=== PATIENT | male | born 1965 | race Caucasian/White ===

== ENCOUNTER → 2023-01-08 13:26 | Outpatient (BNVA) | payer OTHER, SELFPAY | PROVIDERS: PCP Internal Medicine; Visit Provider Physician Assistant ==

== ENCOUNTER 2023-01-16 10:08 | Outpatient (REF) | payer OTHER, SELFPAY ==
--- NOTE | ~2023-01-16 | MR_ITS ---
EXAMINATION: MR LUMBAR SPINE WITHOUT AND WITH CONTRAST CLINICAL INFORMATION: Other intervertebral disc displacement, lumbar region. COMPARISON: Lumbar spine MRI 08/17/2020. TECHNIQUE: MRI of the lumbar spine was obtained using routine sequences without and with intravenous contrast. A total of 10 mL Gadavist was intravenously administered. FINDINGS: The lumbar vertebral bodies maintain normal heights and alignment. No significant disc height loss is seen. There is no bone marrow edema. The distal spinal cord appears normal. The conus medullaris terminates normally at the L1 level. The visualized paraspinal muscles and intra-abdominal and pelvic contents are within normal limits. SPINAL LEVELS: L1-L2: No posterior disc abnormality. No spinal canal or neural foraminal stenosis. L2-L3: Minimal disc bulging with mild facet arthropathy. No spinal canal or neural foraminal stenosis. L3-L4: Disc bulging with shallow central protrusion and moderate facet arthropathy. Mild narrowing the subarticular zones. Mild bilateral neural foraminal stenosis. Mild spinal canal stenosis. L4-L5: Disc bulging with severe facet arthropathy. Bilateral subarticular stenosis with narrowing of both subarticular zones. Mild to moderate spinal canal stenosis. Moderate bilateral neural foraminal stenosis which appears progressed. L5-S1: Right subarticular extrusion with inferior migration resulting in significant compression of the traversing right S1 nerve root. There is peripheral enhancement of the extruded disc material suggesting recurrence. Severe right and moderate left neural foraminal stenosis with compression of the exiting right more than left L5 nerve roots. MR/MR lumbar spine wo/w con IMPRESSION: 1. At L5-S1 there is recurrent right subarticular extrusion with inferior migration resulting in significant compression of the traversing right S1 nerve root. Severe right and moderate left neural foraminal stenosis with compression of the exiting right more than left L5 nerve roots. 2. At L4-L5 there is mild to moderate spinal canal stenosis and progressive moderate bilateral neural foraminal stenosis.
== END 2023-01-16 10:09 | disposition home or self-care (01) ==
LOC: HO.MRI 10:08
PROVIDERS: PCP Internal Medicine; Visit Provider Physician Assistant
DX: M51.26 Other intervertebral disc displacement, lumbar region (principal)
CPT/HCPCS: 72158; A9585

== ENCOUNTER → 2023-03-19 13:36 | Outpatient (BNV) | payer OTHER, SELFPAY | PROVIDERS: Admitting Provider Neurological Surgery; PCP Internal Medicine; Visit Provider Internal Medicine Cardiovascular Disease | DX: Z01.818 Encounter for other preprocedural examination (principal) | CPT/HCPCS: 93010 ==

== ENCOUNTER 2023-05-27 08:50 | Inpatient (IN) | payer OTHER, SELFPAY ==
--- NOTE | 2023-03-19 | ECG_ITS ---
Test Reason : PREOP Blood Pressure : / mmHG Vent. Rate : 069 BPM Atrial Rate : 069 BPM P-R Int : 144 ms QRS Dur : 096 ms QT Int : 400 ms P-R-T Axes : 005 -04 -13 degrees QTc Int : 428 ms Normal sinus rhythm Moderate voltage criteria for LVH, may be normal variant ( R in aVL , Magnus product ) Inferior infarct , age undetermined Abnormal ECG No previous ECGs available Referred By: Enedina Mondragon Electronically Signed By:BRUNO DOLAN MD
[2023-03-19 13:05] VITALS: BP 147/93; PULSE 68; RESP 16; O2SAT 98; BMI 34.3
--- NOTE | 2023-03-19 13:15 | P.CONAN_ITS ---
HPI - Anesthesia Eval Consult details Narrative: 57yo M for L5-S1 Transkambin Lumbar Interbody Fusion rescheduled to 05/27/23 Hx of WPW with open repair ~35years ago No recent illness No CP/SOB with minimal activity d/t back pain Diet controlled DM. A1C ~6% [facility] Active Problems Active Problems: All Active Problems (Updated 03/19/23 @ 13:01 by Devika Livingston RN) Lumbar disc herniation (Acute) Past Medical History Medical History (Updated 03/19/23 @ 13:01 by Devika Livingston RN) Diabetes Difficulty urinating Elevated cholesterol GERD (gastroesophageal reflux disease) History of COVID-19 HTN (hypertension) Renal calculi Sciatica WPW (Hgpkc-Cjulvraco-Mscfi syndrome) Family History Family history of problems with anesthesia: No Surgical History Surgical History (Updated 03/19/23 @ 12:59 by Devika Livingston RN) H/O colonoscopy History of back surgery History of esophagogastroduodenoscopy (EGD) Hx of cholecystectomy Hx of fusion of cervical spine Hx of hernia repair Hx of shoulder surgery Hx of umbilical hernia repair History of Problems with Anesthesia: Yes (PONV) Social History Social History Household Members Other:: brothers Are you a primary pediatric acute care unit nurse to a significant other at home: No Do you presently have visiting nurse or other home services: No Patient Tobacco Use Status: Never used Tobacco Meds Allergies Allergy/AdvReac Type Severity Reaction Status Date / Time gabapentin Allergy Severe Diarrhea Verified 03/19/23 13:05 lisinopril Allergy Intermediate lip Verified 03/18/23 13:26 swelling Home Medications Medication Instructions Recorded Confirmed Last Taken Type amlodipine 5 mg tablet 5 mg PO QAM 03/18/23 03/19/23 Unknown History atorvastatin 40 mg tablet 40 mg PO BEDTIME 03/18/23 03/18/23 Unknown History metoprolol succinate 25 mg 25 mg PO BEDTIME 03/18/23 03/19/23 Unknown History tablet,extended release 24 hr omeprazole 40 mg capsule,delayed 40 mg PO QAM 03/18/23 03/19/23 Unknown History release triamterene 37.5 1 tab PO QAM 03/18/23 03/19/23 Unknown History mg-hydrochlorothiazide 25 mg tablet ibuprofen 200 mg tablet 600 - 800 mg PO BID 03/19/23 03/19/23 Unknown History Exam Exam Date and Time: March 19, 2023 1315 Height,Weight and Vital Signs: Height 5 ft 7 in Weight 99.337 kg Last Vital Signs Pulse 68 03/19/23 13:05 Resp 16 03/19/23 13:05 BP 147/93 H 03/19/23 13:05 Pulse Ox 98 03/19/23 13:05 O2 Del Method Room Air 03/19/23 13:05 Pertinent Lab Results Pertinent Lab Results: Lab Results 03/19/23 03/19/23 Range/Units 13:35 13:35 WBC 7.3 (4.8-10.8) X10*3/uL RBC 5.18 (4.60-5.80) X10*6/uL Hgb 15.7 (14.0-18.0) g/dl Hct 45.3 (42.0-52.0) % MCV 87.5 (80.0-98.0) fL MCH 30.3 (27.0-33.0) pg MCHC 34.7 (31.0-36.0) g/dl RDW 12.8 (11.0-16.0) % Plt Count 224 (160-400) X10*3/uL MPV 10.4 (9.4-12.4) fL Absolute Nucleated RBC 0.000 (0.0-0.012) X10*3/uL Nucleated RBC % (auto) 0.0 (0.0-0.2) /100WBC Sodium 140 (135-145) mmol/L Potassium 3.9 (3.3-5.1) mmol/L Chloride 103 (96-108) mmol/L Carbon Dioxide 27 (22-29) mmol/L Anion Gap 14 (12-20) BUN 19 H (9-16) mg/dL Creatinine 0.91 (0.5-1.4) mg/dL Estim Creat Clear Calc 101.7 Estimated GFR > 60 Random Glucose 128 H (60-115) mg/dL Calcium 9.7 (8.4-10.2) mg/dL Narrative Narrative: EKG 02/2023 Vent. Rate : 069 BPM ? ? Atrial Rate : 069 BPM ?? P-R Int : 144 ms? QRS Dur : 096 ms ? ? QT Int : 400 ms ? ? ? P-R-T Axes : 005 -04 -13 degrees ?? QTc Int : 428 ms ? Normal sinus rhythm Moderate voltage criteria for LVH, may be normal variant ( R in aVL , Magnus product ) Inferior infarct , age undetermined Abnormal ECG No change from 06/2022 EKG from outside facility Airway Mallampati Class: III TM Dist: >3cm Neck ROM: Limited (s/p cervical fusion) Loose/Missing/Broken Teeth: Yes (2 x molars pulled, 1 crowned molar) Heart: RRR Lungs: CTAB Assessment and Plan Assessment Anesthesia Assessment: Anesthesia Plan Discussed and PAT Visit Final Anesthetic Review Family History of Problems with Anesthesia: No History of Problems with Anesthesia: Yes (PONV)
[2023-03-19 14:02] LABS: Hematocrit 45.3 % (42.0-52.0); Hemoglobin 15.7 g/dl (14.0-18.0); Mean Corpuscular HGB Conc 34.7 g/dl (31.0-36.0); Mean Corpuscular Hemoglobin 30.3 pg (27.0-33.0); Mean Corpuscular Volume 87.5 fL (80.0-98.0); Mean Platelet Volume 10.4 fL (9.4-12.4); Platelet Count 224 X10*3/uL (160-400); Red Blood Count 5.18 X10*6/uL (4.60-5.80); Red Cell Distribution Width 12.8 % (11.0-16.0); White Blood Count 7.3 X10*3/uL (4.8-10.8)
[2023-03-19 20:09] LABS: Anion Gap 14 (12-20); Blood Urea Nitrogen 19 mg/dL (9-16); Calcium 9.7 mg/dL (8.4-10.2); Carbon Dioxide 27 mmol/L (22-29); Chloride 103 mmol/L (96-108); Creatinine Clr Calc Pharmacy 101.7; Estimated Glomerular Filt Rate > 60; Glucose Random 128 mg/dL (60-115); Potassium 3.9 mmol/L (3.3-5.1); Sodium 140 mmol/L (135-145)
--- NOTE | 2023-05-24 08:35 | HO.ANESPROP2 ---
Documented by User: Enedina Mondragon NP 05/24/23 08:37 HPI - Anesthesia Eval Consult details Narrative: 57yo M for L5-S1 Transkambin Lumbar Interbody Fusion rescheduled to 05/27/23 Hx of WPW with open repair ~35years ago No recent illness No CP/SOB with minimal activity d/t back pain Diet controlled DM. A1C ~6% PMF Active Problems Active Problems: All Active Problems (Updated 03/19/23 @ 13:01 by Devika Livingston RN) Lumbar disc herniation (Acute) Past Medical History Medical History (Updated 03/19/23 @ 13:01 by Devika Livingston RN) Difficulty urinating Sciatica WPW (Uyjya-Kbkpcaywd-Hjvub syndrome) Renal calculi History of COVID-19 Diabetes GERD (gastroesophageal reflux disease) Elevated cholesterol HTN (hypertension) Family History Family history of problems with anesthesia: No Surgical History Surgical History (Updated 03/19/23 @ 12:59 by Devika Livingston RN) Hx of shoulder surgery Hx of cholecystectomy History of esophagogastroduodenoscopy (EGD) Hx of umbilical hernia repair Hx of hernia repair Hx of fusion of cervical spine H/O colonoscopy History of back surgery History of Problems with Anesthesia: Yes (PONV) Social History Social History Household Members Other:: brothers Are you a primary caregiver services home to a significant other at home: No Do you presently have visiting nurse or other home services: No Patient Tobacco Use Status: Never used Tobacco Use of substances other than those prescribed or required for medical reasons: No Have you been hit, kicked, punched, or otherwise hurt by someone within the past year? If so, by whom?: No Are you DNR?: No Advance Directives: No Advance Directives Information Provided: Yes (brochure given) Advance Directives on File: No Recently lost weight without trying: No Eating poorly because of decreased appetite: No Nutrition Risks: No Nutritional Risk Poor oral hygiene: No (2 missing teeth) Meds Allergies Allergy/AdvReac Type Severity Reaction Status Date / Time gabapentin Allergy Severe Diarrhea Verified 03/19/23 13:05 lisinopril Allergy Intermediate lip Verified 03/18/23 13:26 swelling Home Medications Medication Instructions Recorded Confirmed Last Taken Type amlodipine 5 mg tablet 5 mg PO QAM 03/18/23 03/19/23 Unknown History atorvastatin 40 mg tablet 40 mg PO BEDTIME 03/18/23 03/18/23 Unknown History metoprolol succinate 25 mg 25 mg PO BEDTIME 03/18/23 03/19/23 Unknown History tablet,extended release 24 hr omeprazole 40 mg capsule,delayed 40 mg PO QAM 03/18/23 03/19/23 Unknown History release triamterene 37.5 1 tab PO QAM 03/18/23 03/19/23 Unknown History mg-hydrochlorothiazide 25 mg tablet ibuprofen 200 mg tablet 600 - 800 mg PO BID 03/19/23 03/19/23 Unknown History Exam Exam Date and Time: May 24, 2023 0835 Height,Weight and Vital Signs: Height 5 ft 7 in Weight 99.337 kg Last Vital Signs Pulse 68 03/19/23 13:05 Resp 16 03/19/23 13:05 BP 147/93 H 03/19/23 13:05 Pulse Ox 98 03/19/23 13:05 O2 Del Method Room Air 03/19/23 13:05 Pertinent Lab Results Pertinent Lab Results: Laboratory Tests 03/19/23 13:35 WBC 7.3 RBC 5.18 Hgb 15.7 Hct 45.3 MCV 87.5 MCH 30.3 MCHC 34.7 RDW 12.8 Plt Count 224 MPV 10.4 Absolute Nucleated RBC 0.000 Nucleated RBC % (auto) 0.0 Sodium 140 Potassium 3.9 Chloride 103 Carbon Dioxide 27 Anion Gap 14 BUN 19 H Creatinine 0.91 Estim Creat Clear Calc 101.7 Estimated GFR > 60 Random Glucose 128 H Calcium 9.7 Narrative Narrative: EKG 02/2023 Vent. Rate : 069 BPM ? ? Atrial Rate : 069 BPM ?? P-R Int : 144 ms? QRS Dur : 096 ms ? ? QT Int : 400 ms ? ? ? P-R-T Axes : 005 -04 -13 degrees ?? QTc Int : 428 ms ? Normal sinus rhythm Moderate voltage criteria for LVH, may be normal variant ( R in aVL , Hallett product ) Inferior infarct , age undetermined Abnormal ECG No change from 06/2022 EKG from outside facility Airway Mallampati Class: III TM Dist: >3cm Neck ROM: Limited (s/p cervical fusion) Loose/Missing/Broken Teeth: Yes (2 x molars pulled, 1 crowned molar) Heart: RRR Lungs: CTAB Assessment and Plan Assessment Anesthesia Assessment: PAT Visit (PAT done 02/2023. Surgery rescheduled from February.) and Chart Reviewed Final Anesthetic Review Family History of Problems with Anesthesia: No History of Problems with Anesthesia: Yes (PONV) Documented by User: Gabriela Moore MD 05/27/23 11:01 [facility] Past Medical History Medical History (Updated 03/19/23 @ 13:01 by Devika Livingston RN) Difficulty urinating Sciatica WPW (Rhyhh-Tuirekdrp-Idcbu syndrome) Renal calculi History of COVID-19 Diabetes GERD (gastroesophageal reflux disease) Elevated cholesterol HTN (hypertension) Surgical History Surgical History (Updated 03/19/23 @ 12:59 by Devika Livingston RN) Hx of shoulder surgery Hx of cholecystectomy History of esophagogastroduodenoscopy (EGD) Hx of umbilical hernia repair Hx of hernia repair Hx of fusion of cervical spine H/O colonoscopy History of back surgery Social History Social History Household Members Other:: brothers Are you a primary caregiver services home to a significant other at home: No Do you presently have visiting nurse or other home services: No Patient Tobacco Use Status: Never used Tobacco Use of substances other than those prescribed or required for medical reasons: No Have you been hit, kicked, punched, or otherwise hurt by someone within the past year? If so, by whom?: No Are you DNR?: No Advance Directives: No Advance Directives Information Provided: Yes (brochure given) Advance Directives on File: No Recently lost weight without trying: No Eating poorly because of decreased appetite: No Nutrition Risks: No Nutritional Risk Poor oral hygiene: No (2 missing teeth) Meds Allergies Allergy/AdvReac Type Severity Reaction Status Date / Time gabapentin Allergy Severe Diarrhea Verified 03/19/23 13:05 lisinopril Allergy Intermediate lip Verified 03/18/23 13:26 swelling Home Medications Medication Instructions Recorded Confirmed Last Taken Type amlodipine 5 mg tablet 5 mg PO QAM 03/18/23 03/19/23 Unknown History atorvastatin 40 mg tablet 40 mg PO BEDTIME 03/18/23 03/18/23 Unknown History metoprolol succinate 25 mg 25 mg PO BEDTIME 03/18/23 03/19/23 Unknown History tablet,extended release 24 hr omeprazole 40 mg capsule,delayed 40 mg PO QAM 03/18/23 03/19/23 Unknown History release triamterene 37.5 1 tab PO QAM 03/18/23 03/19/23 Unknown History mg-hydrochlorothiazide 25 mg tablet ibuprofen 200 mg tablet 600 - 800 mg PO BID 03/19/23 03/19/23 Unknown History Assessment and Plan Final Anesthetic Review ASA Class: III Final Preanesthetic Review: No Changes in Pt Med Stat, Meds/Allgs Chart Reviewed, Consent Obtained/Reviewed and Anes Risks/Benef Reviewed Patient Risk: Intermediate Procedure Risk: Intermediate Anesthetic Plan Anesthetic Plan: GA Disposition: Standard PACU
[2023-05-27] VITALS (10 sets, daily range): BP systolic 132–161; BP diastolic 60–95; PULSE 81–102; RESP 14–20; TEMP 36.2–36.9; O2SAT 96–100; BMI 34.3
--- NOTE | ~2023-05-27 | FL_ITS ---
EXAMINATION: XR FLUOROSCOPY WITH IMAGES CLINICAL INFORMATION: Transforaminal lumbar interbody fusion COMPARISON: None available. TECHNIQUE: Fluoroscopy Supervised By: Amanda. Fluoroscopy Time: 1.5 minutes. Cumulative Dose: 86.4 mGy. DAP: 23.5 Gycm2. Images: 2. FINDINGS: Fluoroscopy performed during L5-S1 posterior fusion FL/FL guidance in OR IMPRESSION: Fluoroscopy performed by the surgery department. Please see the operative report for additional information.
--- NOTE | 2023-05-27 06:59 | MHC.SHP ---
Pre-Procedural Eval Section A Date of Service: 05/27/23 Section B Chief Complaint: S/P L5-SI TLIF Allergies: Allergies Allergy/AdvReac Type Severity Reaction Status Date / Time gabapentin Allergy Severe Diarrhea Verified 03/19/23 13:05 lisinopril Allergy Intermediate lip Verified 03/18/23 13:26 swelling Review of Systems Sugical H&P ROS: Negative: Constitution, Cardiovascular, Respiratory, Neurological, Psychiatric, Hem-Onc, Allergic/Immunologic, Gastrointestinal, Genitourinary, Musculoskeletal, Integumentary, Endocrine and Eyes/Ears/Nose/Throat Exam Surgical H&P Exam: Not Evaluated: HEENT, Not Evaluated: Heart, Not Evaluated: Lungs, Not Evaluated: Extremities, Not Evaluated: Abdomen, Not Evaluated: Skin and Not Evaluated: Neurological Plan Diagnosis/Plan: Unchanged I have reviewed the history and physical and performed a pertinent physical examination on my patient. No changes have occurred unless specified. Plan remains the same, L5-S1 TLIF Time Spent With Patient Time: Total time managing care of this patient today _10___ minutes.
[2023-05-27] MEDS: Lactated Ringers 1,000 ML 100 ML IVCONT (09:08)
[2023-05-27] MEDS: methocarbamoL 750 MG TABLET PO (09:09)
[2023-05-27] MEDS: Scopolamine 1.5 MG PATCH.TD.3 TRANSDERMA (09:09)
--- NOTE | 2023-05-27 13:06 | PHA.MEDREC ---
Pharmacy Consult ? Medication Reconciliation Pharmacy has reviewed the medication reconciliation. I did change the beta brian however, it was confirmed to be metoprolol but patient has more recent claim for carvedilol
--- NOTE | 2023-05-27 15:24 | W.PM.OPN ---
Operative Note Operative Note Date of Service: 05/27/23 Narrative: Preop diagnosis: Recurrent disc herniation L5-S1, right-side Postop diagnosis: [] Procedure: L5-S1 diskectomy with removal of disc herniation to decompress nerve root; L5-S1 arthrodesis and implantation cage; L5-S1 posterior instrumentation; combination of allograft and allograft Surgeon: Wes Patel MD Assist: kirill Bardales Anesthesia: General Estimated blood loss: 60 mL Specimen: None Intraoperative findings: Disc herniation compressing the right S1 nerve root Procedure: This 57-year-old male presented with a 3rd recurrent herniated disc L5-S1 compressing the right S1 nerve root. He was offered a remove the disc herniation followed by a fusion of the L5-S1 segment with a transforaminal lumbar interbody fusion. Procedure complication explained. She was consented. He was brought to the operating room endotracheally intubated. He was turned in a prone position the Joel spine table prepping and draping was done followed by time-out. Two C arms were installed for fluoroscopy. Two paramedian incisions were made in preparation for pedicle screw placement. Following steps were taken for pedicle screw placement: First the pediguard tap was used to create a transpedicular trajectory into the vertebral body. Then a K-wire was advanced into the vertebral body. On the contralateral side, a specially designed instrument was advanced over the K-wire, followed by placement of a pedicle screw in the corresponding pedicle and removal of the K-wire. On the ipsilateral side, the K-wires were bent out of the way after which the transforaminal interbody fusion process was started. The paravertebral muscles were released to expose the L5-S1 lamina and facet joint. A high-speed drill was used to a complete facetectomy. The S1 nerve root was identified as well as the previous diskectomy defect. A nerve hook and pituitaries were used to remove the disc herniation that was located medial from the S1 nerve root at the origin of the nerve root. A thorough L5-S1 diskectomy was done. An 8 mm, 10 mm and 12 mm trial implants were inserted. More disc material was removed. The endplates were prepared. The anterior 1/3 of disc space was filled with a mixture of autograft and allograft followed by placement of a 12 mm by 32 mm and 6 degree lordosis CTL titanium cage filled with autograft and allograft ending in the the midline on AP fluoroscopic image. Hemostasis was done. The retractor was removed. Finally, pedicle screws were placed over the K-wires and the K-wires were removed. A total 4 pedicle screws were placed with a diameter of 6.5 x 45 mm in the L5 pedicles and 6.5 x 40 mm in the S1 pedicles. The pedicle screws were connected with a 40 mm viola and locked down with locking caps. Final x-rays in AP and lateral projection showed good position of the interbody device and posterior instrumentation. Hemostasis was done and the incisions were closed with an 0 Vicryl to fascia and a 3-0 Vicryl for the subdermal layer. All sponge and needle counts were correct. Patient was extubated and transported in a stable condition to recovery room. This procedure was done with assistance of her physician volunteer assistant who helped an educational sign language interpreter in the fluoroscopic imaging, placed pedicle screws and performed hemostasis and closure of the incisions.
[2023-05-27] MEDS: oxyCODONE HCl Immed Release 5 MG TABLET 10 MG PO (16:12)
[2023-05-27] MEDS: fentaNYL citrate/PF 100 MCG/2 ML VIAL 50 MCG IVPUSH (16:17)
[2023-05-27] MEDS: 0.9 % Sodium Chloride 1,000 ML 75 ML IVCONT (17:31)
--- NOTE | 2023-05-27 17:52 | PC.NURSE ---
Pt arrived to unit via bed approximatley 1700. Dressing to right low back saturated. New dressing applied. IVF connected per MD order. Pt repositioned
[2023-05-27] MEDS: HYDROmorphone HCl 1 MG/ML SYRINGE IVPUSH (18:43)
[2023-05-27] MEDS: ceFAZolin Sodium/Dextrose,Iso 2 GM/50 ML PIGGYBACK IV (19:31)
[2023-05-27] MEDS: carvediloL 25 MG TABLET PO (20:14)
[2023-05-27] MEDS: Atorvastatin Calcium 40 MG TABLET PO (20:14)
[2023-05-27] MEDS: Docusate Sodium 100 MG CAPSULE PO (20:14)
[2023-05-27] MEDS: Ketorolac Tromethamine 15 MG/ML VIAL IVPUSH (20:14)
[2023-05-27] MEDS: Acetaminophen 1,000 MG/100 ML PIGGYBACK 400 MG IV (20:15)
[2023-05-28] MEDS: Ketorolac Tromethamine 15 MG/ML VIAL IVPUSH (02:41)
[2023-05-28] MEDS: Acetaminophen 1,000 MG/100 ML PIGGYBACK 400 MG IV (02:43)
[2023-05-28] MEDS: ceFAZolin Sodium/Dextrose,Iso 2 GM/50 ML PIGGYBACK IV ×2 (02:49→07:53)
[2023-05-28 03:35] VITALS: BP 135/75; PULSE 83; RESP 18; TEMP 36.2; O2SAT 99
[2023-05-28] MEDS: 0.9 % Sodium Chloride 1,000 ML 75 ML IVCONT (05:00)
[2023-05-28] MEDS: Omeprazole 40 MG CAPSULE.DR PO (06:20)
[2023-05-28 07:09] VITALS: BP 136/76; PULSE 81; RESP 16; TEMP 36.9; O2SAT 95
[2023-05-28 07:29] VITALS: BP 136/76; PULSE 81; O2SAT 95
--- NOTE | 2023-05-28 07:51 | HO.NEURO.PN ---
Neurosurgery Operative Note Date of Service: 05/28/23 Narrative: Postop day 1. L5-S1 right-sided transforaminal lumbar interbody fusion Patient reports that his preoperative leg pain is gone, he is feeling improvement in sensation in his leg. His pain level in his back is minimal. He is voiding okay. He had dinner last night without any issues. Afebrile, vital signs stable Physical exam: Patient is awake alert oriented x3, no acute distress, demonstrates full strength of bilateral lower extremities, back dressings have some serosanguineous drainage, the been reinforced Impression: Postop day 1. L5-S1 right-sided transforaminal lumbar interbody fusion, clinically doing very well with minimal back pain, improvement in his preoperative right leg pain. He is going to get of walker on physical therapy this morning, but the plan will be to discharge him home. Patient seen at bedside with Dr. Patel.
[2023-05-28] MEDS: amLODIPine Besylate 5 MG TABLET PO (07:53)
--- NOTE | 2023-05-28 07:53 | P.DS_ITS ---
DS: Providers Provider Date of Service: 05/27/23 Date of admission: 05/27/23 08:50 Date of discharge: 05/28/23 Primary care physician: Tania Briones MD Admitting clinician: Wes Patel DS: Diagnosis Discharge Diagnosis (1) Lumbar disc herniation: Status: Acute DS: Summary Time Spent with Patient Time attestation: Total time managing care of this patient today ____ minutes. Discharge coordination time: Less than 30 minutes Quality: Safe Use of Opioids Does Pt have an Active Cancer Diagnosis on the Problem List?: No Quality: Stroke Does the patient have a stroke diagnosis?: No Physical Exam Vital Signs: Vital Signs: Last Vital Signs Temp 98.5 F 05/28/23 07:09 Pulse 81 05/28/23 07:29 Resp 16 05/28/23 07:09 BP 136/76 05/28/23 07:29 Pulse Ox 95 05/28/23 07:29 O2 Del Method Room Air 05/28/23 07:09 O2 Flow Rate 2 05/27/23 17:28 BMI result Body Mass Index 34.3 DS: Data Data Completed and Pending Labs on day of discharge: Laboratory Results - last 24 hr 05/27/23 08:56 Blood Type O Positive Antibody Screen NEGATIVE Discharge Plan Discharge Anticipated Discharge Date/Time: 05/28/23 13:53 Patient Disposition: Home, Self-Care Discharge Diagnosis: lumbar disk herniation, s/p L5-S1 TLIF Referrals: Tania Briones MD [Primary Care Provider] - 1 Week Discharge Medications: New docusate sodium [Colace] 100 mg capsule 100 mg PO BID Qty: 20 0RF oxycodone 5 mg tablet See Rx Instructions .ROUTE .COMPLEX PRN (Reason: pain) Qty: 40 0RF Rx Instructions: 1-2 tabs po q 4 hours prn pain ; Partial Fill upon patient request. Continued atorvastatin 40 mg tablet 40 mg PO BEDTIME amlodipine 5 mg tablet 5 mg PO QAM omeprazole 40 mg capsule,delayed release(DR/EC) 40 mg PO QAM triamterene-hydrochlorothiazid 37.5-25 mg tablet 1 tab PO QAM ibuprofen 200 mg Tablet 600 - 800 mg PO BID carvedilol 25 mg tablet 25 mg PO BID Discharge Orders: Discharge Order (Routine); Ordered 05/28/23 Ordered By: Denis T Wilson Diet: Advance to usual diet Activity on Discharge: As tolerated Stand Alone Forms: Patient Portal Discharge page Activity Restrictions/Additional Instructions: After your spinal surgery we ask you to observe the following restrictions/guidelines: Activity: It is normal to feel some discomfort as you increase your activity, but that will improve with time. We ask you avoid heavy lifting or acitivities that cause pain. As a general rule, 8lbs is a safe limit for lifting right after surgery. Walk as much as you feel comfortable but not to exhaustion. You will feel extra tired the first few days after surgery. Stay well hydrated. It is OK to walk up and down stairs You may return to driving when you are off narcotics (such as vicodin, oxycodone, dilaudid, etc), and you are back to normal functional capacity. If you have any concerns please check with office before driving. Return to work is specific to each patient and each surgery, so please speak with your doctor/PA at first follow up. Please bring paperwork such as FMLA at that time if you need it filled out. Medications: For optimum pain control, it is best to start with a combination of 500 mg of Tylenol every 4 hours with 600 mg of Motrin every 8 hours, and use narcotics as needed in between for breakthrough pain. We will give you a short supply of narcotics after surgery (usually one weeks worth). If you need more please call the office but do not use more than pres cribed. You will need to give our office 48 hours notice if you need narcotics refilled and we do not fill narcotics on weekends or evenings. If you are on a narcotic, it is a good idea to take a stool softener such as colace or senna to avoid constipation If you take blood thinner such as aspirin, Plavix, Coumadin, Effient, Eliquis etc for conditions such as Afib, DVT, Pulmonary embolus, coronary disease, stents etc please speak with your surgeon about specific details as to when you can resume these medications. You can resume NSAIDs on post op day 1 (eg: Motrin, Naproxen, etc). Follow up: Please call the office, , after surgery to arrange a 3 week follow up for wound check. Wound Care: You may remove your dressing on the first day after surgery. You may leave open to air. Please do not remove the steri strips underneath. they will fall off on their own in one week. IT IS NORMAL FOR THE WOUND TO OOZE OR BE BLOODY FOR A FEW DAYS AFTER SURGERY. IF THIS HAPPENS JUST PLACE NEW DRESSING OVER IT TO AVOID STAINING CLOTHES. You may shower on post op day # 1 We ask that you do not let the water soak the wound. If it does get wet, just towel dry lightly. Please do not scrub your incision or place any type of chemical/ointment on the wound. No tub baths, pools or jacuzzis for one month. If you have any leaking or redness from your wound, or fevers, please call office Care Plan Goals: discharge home Health Concerns: none Plan of Treatment: discharge home Assessment: stable
[2023-05-28] MEDS: Docusate Sodium 100 MG CAPSULE PO (07:54)
[2023-05-28] MEDS: Triamterene/HCTZ 37.5/25 TABLET 1 TAB PO (07:54)
[2023-05-28] MEDS: oxyCODONE HCl Immed Release 5 MG TABLET 10 MG PO (07:55)
--- NOTE | 2023-05-28 08:54 | MHC.CM.PN ---
PT DCD HOME NO SERVICES
--- NOTE | 2023-05-29 06:50 | HO.POSTANES ---
Post Anesthesia Evaluation Post Anesthesia Evaluation Date of Service: 05/28/23 Vital Signs: Patient seen at 0730am 0n 05/28/23 for post-op anesthesia check Vitals: 130/76, 81, 16, 98.5F, 95%RA Anesthesia: General Endotracheal-GETA Mental Status: Awake Pain Control: Satisfactory Nausea/Vomiting: None Hydration: Adequate Anesthesia-Related Issues: No Anes. Related Issues
== END 2023-05-28 11:57 | disposition home or self-care (01) | DRG 460 ==
LOC: HO.SSSA 08:52 → HO.S3 16:09
PROVIDERS: Neurological Surgery; Nurse Practitioner; Admitting Provider Physician Assistant; PCP Internal Medicine; Visit Provider Physician Assistant
PROC: 0SG30A0 Fusion of Lumbosacral Joint with Interbody Fusion Device, Anterior Approach, Anterior Column, Open Approach (ICD-10-PCS; principal; 2023-05-27 10:40)
DX: M51.27 Other intervertebral disc displacement, lumbosacral region (principal); I10 Essential (primary) hypertension; Z79.899 Other long term (current) drug therapy
CPT/HCPCS: 36415; 80048; 85027; 86850; 86900; 86901; 93005; 97162; C1713; J0131; J0690; J1100; J1170; J1885; J2250; J2405; J3010; L8699

== ENCOUNTER → 2023-05-27 08:50 | Outpatient (BNV) | payer OTHER, SELFPAY | PROVIDERS: Admitting Provider Physician Assistant; PCP Internal Medicine; Visit Provider Neurological Surgery | DX: M51.26 Other intervertebral disc displacement, lumbar region (principal); Z48.89 Encounter for other specified surgical aftercare | CPT/HCPCS: 20930; 20936; 22633; 22840; 22853; 63052; 99024; 99499 ==

== ENCOUNTER 2023-07-12 13:45 | Outpatient (AMB) | payer OTHER, SELFPAY ==
--- NOTE | 2023-07-12 13:58 | A.SPINEOV_ITS ---
Intake Intake Visit Reasons: late 1st post op Intake Note: Mr. Carranza is here today for his 1st post-op visit. Medical Oncology Physician Required: No Allergies gabapentin Allergy (Severe, Verified 03/19/23 13:05) Diarrhea lisinopril Allergy (Intermediate, Verified 03/18/23 13:26) lip swelling Assessment & Plan Assessment & Plan (1) S/P spinal fusion: Code(s): Z98.1 - Arthrodesis status Plan Procedure: L5-S1 TLIF Daryl comes in today for his 1st postoperative visit. He reports he is very satisfied with the surgery and feels much better than he did preoperatively. The patient reports he is up walking around and completing the majority of her ADLs. 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 He does continue to report some longstanding tenderness around his tailbone area. He states that this tenderness waxes/wanes and is not of significant concern for him at this time. He reports he is back to work and is overall doing very well. He had no questions or concerns during this visit The patient is neurologically intact. He is able to ambulate well, rises from a seated position without difficulty. Incision sites are closed, well healing, with no signs of drainage. The patient opted out of returning for a 2nd postoperative visit as this 1st postoperative visit was relatively late and he is feeling significantly better. Ulises Patel MD,PhD [facility] Coding Level of Care Code Global (30474) Diagnoses S/P spinal fusion Z98.1
== END 2023-07-12 14:31 | disposition home or self-care (01) ==
PROVIDERS: PCP Internal Medicine; Visit Provider Physician Assistant
DX: Z98.1 Arthrodesis status (principal)
CPT/HCPCS: 99024

== ENCOUNTER → 2023-07-12 13:45 | Outpatient (BNVA) | payer OTHER, SELFPAY | PROVIDERS: PCP Internal Medicine; Visit Provider Physician Assistant ==